=== PATIENT | female | born 1995 | race Asian ===

== ENCOUNTER 2016-09-12 00:47 | Emergency (ER) | payer OTHER ==
[~2016-09-12] VITALS: Ht 160 cm; Wt 65.4 kg
[2016-09-12 00:49] VITALS: Ht 160 cm; Wt 65.4 kg
[2016-09-12] MEDS ORDERED: FAMO-18 PO (01:57)
[2016-09-12] MEDS ORDERED: PRED50TA PO (01:57)
[2016-09-12] MEDS ORDERED: BEN50 PO (01:57)
[2016-09-12] MEDS ORDERED: DIPHENHYDRAMINE 50 MG INJ IM ONE (02:00)
[2016-09-12] MEDS ORDERED: METHYLPREDNISOLONE 125 MG INJ IM ONE (02:00)
--- NOTE | 2016-09-12 02:11 | ERD ---
ER Documentation Chief Complaint Date/Time DATE: 09/12/16 TIME: 02:00 Chief Complaint allergic reaction to unknown. states started on thyroid med x 1 wk ago HPI 21-year-old male presents here in emergency department for complaints of rash all over the body and itching after taking methimazole, started new medication, methimazole one week ago, started to have the itching and rash over the body 2 days ago. Patient is complaining of itching. Patient denies any pain. Patient denies any shortness breath stridor, patient denies any lip swelling, tongue swelling or stridor. She does not have any shortness of breath or wheezing. ROS All systems reviewed and are negative except as per history of present illness. Medications Home Meds Active Scripts Famotidine* (Pepcid*) 20 Mg Tablet, 20 MG PO BID, #20 TAB Prov:ESTRADA ZAPATA [employer] 09/12/16 Prednisone* (Prednisone*) 50 Mg Tablet, 50 MG PO DAILY, #5 TAB Prov:ESTRADA ZAPATA [employer] 09/12/16 Diphenhydramine Hcl* (Benadryl*) 50 Mg Cap, 50 MG PO Q6H Y for ITCHING/RASH, # 30 CAP Prov:ESTRADA ZAPATA [employer] 09/12/16 Allergies Allergies: Coded Allergies: Methimazole (Verified Allergy, 09/12/16) PMhx/Soc Medical and Surgical Hx: pt denies Surgical Hx History of Surgery: No Anesthesia Reaction: No Hx Neurological Disorder: No Hx Respiratory Disorders: No Hx Cardiac Disorders: No Hx Psychiatric Problems: No Hx Miscellaneous Medical Probl: Yes (NEWLY DX THYROID) Hx Alcohol Use: No Hx Substance Use: No Hx Tobacco Use: No Smoking Status: Never smoker FmHx Family History: No coronary disease, No diabetes, No other Physical Exam Vitals Vital Signs Date Time Temp Pulse Resp B/P Pulse Ox O2 Delivery O2 Flow Rate FiO2 09/12/16 00:49 97.2 109 18 142/85 100 Physical Exam GENERAL: The patient is well developed and appropriate for usual state of health, in no apparent distress. CHEST: Clear to auscultation bilaterally. There are no rales, wheezes or rhonchi. HEART: Regular rate and rhythm. No murmurs, clicks, rubs or gallops. No S3 or S4. ABDOMEN: Soft, nontender and nondistended. Good bowel sounds. No rebound or guarding. No gross peritonitis. No gross organomegaly or masses. No Daugherty sign or McBurney point tenderness. BACK: No midline or flank tenderness. EXTREMITIES: Equal pulses bilaterally. There is no peripheral clubbing, cyanosis or edema. No focal swelling or erythema. Full range of motion. Grossly neurovascularly intact. NEURO: Alert and oriented. Cranial nerves 2-12 intact. Motor strength in all 4 extremities with 5/5 strength. Sensation grossly intact. Normal speech and gait. SKIN: Maculopapular rash noted all over the body consistent with urticaria. There is no apparent ecchymosis or petechia. The skin is warm and dry. HEMATOLOGIC AND LYMPHATIC: There is no evidence of excessive bruising or lymphedema. No gross cervical, axillary, or inguinal lymphadenopathy. Results 24 hrs Current Medications Medications (Trade) Dose Ordered Sig/Leelee Route PRN Reason Start Time Stop Time Status Last Admin Dose Admin Diphenhydramine HCl (Benadryl) 50 mg ONCE ONCE IM 09/12/16 02:00 09/12/16 02:01 Methylprednisolone Sodium Succinate (Solu-Medrol) 125 mg ONCE ONCE IM 09/12/16 02:00 09/12/16 02:01 Benadryl and Solu-Medrol was given here in emergency department for treatment for urticaria. Patient verbalized feeling much better afterwards. Procedures/MDM Medical decision making: Patient symptoms is consistent with urticaria, no symptoms of anaphylactic shock, no angioedema noted. No symptoms of shortness breath or stridor. No symptoms of oral airway obstruction noted. Patient will be given prescription for Benadryl, Pepcid, prednisone, is advised to stop taking methimazole, advised to see her primary care doctor for possible changing of treatment plan. Patient was advised return to emergency department for any worsening symptoms. Departure Diagnosis: Primary Impression: Urticaria Condition: Stable Patient Instructions: Delio Additional Instructions: stop methimazole, talk to pmd for replacement meds, take meds as prescribed ESTRADA ZAPATA NP Sep 12, 2016 02:10
[2016-09-12 02:35] VITALS: BP 128/64; PULSE 78; RESP 16
== END 2016-09-12 02:36 | disposition home or self-care (01) ==
LOC: FTE 00:47
DX: L50.9 Urticaria, unspecified (principal); T38.2X5A Adverse effect of antithyroid drugs, initial encounter
CPT/HCPCS: 96372; J1200; J2930; Z7502